=== PATIENT | female | born 1975 | race Asian ===

== ENCOUNTER 2020-03-09 13:19 | Emergency (ER) | payer SELFPAY ==
[~2020-03-09] VITALS: Ht 157.5 cm; Wt 68.2 kg
[2020-03-09 13:37] VITALS: BP 129/82
[2020-03-09] MEDS ORDERED: LIDOCAINE 5% TRANSDERMAL PATCH TD ONE (14:30)
[2020-03-09] MEDS ORDERED: KETOROLAC TROMETHAMINE 30 MG/ML VIAL IM ONE (14:30)
== END 2020-03-09 15:12 | disposition home or self-care (01) ==
LOC: EMS 13:26
DX: M54.9 Dorsalgia, unspecified (principal); M25.551 Pain in right hip; M25.552 Pain in left hip; Z91.012 Allergy to eggs; Z91.013 Allergy to seafood
CPT/HCPCS: 96372; 99283; J1885

== ENCOUNTER 2020-03-25 14:47 | Emergency (ER) | payer OTHER ==
[~2020-03-25] VITALS: Ht 162.6 cm; Wt 75.0 kg
[2020-03-25 14:51] VITALS: BP 130/77
[2020-03-25] MEDS ORDERED: IBUP-2759 PO (15:05)
== END 2020-03-25 16:12 | disposition home or self-care (01) ==
LOC: EMS 14:50
DX: M54.5 Low back pain (principal); M25.551 Pain in right hip; M25.552 Pain in left hip; M25.561 Pain in right knee; M25.562 Pain in left knee; Z90.49 Acquired absence of other specified parts of digestive tract

== ENCOUNTER 2020-03-26 14:04 | Emergency (ER) | payer OTHER ==
[~2020-03-26] VITALS: Ht 162.6 cm; Wt 63.6 kg
[~2020-03-26 14:04] MED LIST: IBUP-2759 PO
[2020-03-26] MEDS ORDERED: KETOROLAC TROMETHAMINE 10 MG TABLET PO ONE (17:00)
[2020-03-26 17:52] VITALS: BP 124/65
== END 2020-03-26 18:33 | disposition home or self-care (01) ==
LOC: EMS 14:09
DX: M25.551 Pain in right hip (principal); M25.552 Pain in left hip; G89.29 Other chronic pain; Z90.89 Acquired absence of other organs; Z91.012 Allergy to eggs; Z91.013 Allergy to seafood
CPT/HCPCS: 73521

== ENCOUNTER 2020-04-15 07:00 | Emergency (ER) | payer OTHER ==
[~2020-04-15] VITALS: Ht 157.5 cm; Wt 63.6 kg
[2020-04-15] MEDS ORDERED: NAPR-1025 PO (07:03)
[2020-04-15 07:24] VITALS: BP 140/86
[2020-04-15] MEDS ORDERED: METHOCARBAMOL 500 MG TABLET PO ONE (07:30)
[2020-04-15] MEDS ORDERED: KETOROLAC TROMETHAMINE 30 MG/ML VIAL IM ONE (07:30)
== END 2020-04-15 07:51 | disposition home or self-care (01) ==
LOC: EMS 07:01
DX: M54.5 Low back pain (principal)
CPT/HCPCS: 96372; 99283; J1885

== ENCOUNTER 2020-04-22 09:01 | Emergency (ER) | payer OTHER ==
[~2020-04-22] VITALS: Ht 160 cm; Wt 65.9 kg
[~2020-04-22 09:01] MED LIST changes: -IBUP-2759 PO; +NAPR-1025 PO
[2020-04-22 10:45] VITALS: BP 143/61
[2020-04-22] MEDS ORDERED: KETOROLAC TROMETHAMINE 30 MG/ML VIAL IM ONE (10:45)
== END 2020-04-22 11:06 | disposition home or self-care (01) ==
LOC: EMS 09:11
DX: M54.5 Low back pain (principal); Z91.012 Allergy to eggs; Z91.013 Allergy to seafood
CPT/HCPCS: 96372; 99283; J1885